=== PATIENT | male | born 1970 | race Caucasian/White ===

== ENCOUNTER 2017-08-12 10:45 | Observation (INO) | payer OTHER ==
[~2017-08-12] VITALS: Ht 180.3 cm; Wt 121.6 kg
--- NOTE | 2017-08-12 11:37 | ED CARDIAC/CP/PALPITATIONS ---
See Addendum History of Present Illness General Chief Complaint: Chest Pain Stated Complaint: BIBA CHEST PAIN Source: patient, EMS Exam Limitations: no limitations Vital Signs & Intake/Output Vital Signs & Intake/Output Vital Signs Date Time Temp Pulse Resp B/P B/P Pulse O2 O2 Flow FiO2 Mean Ox Delivery Rate 08/12 1644 98.2 73 18 131/64 94 Room Air 08/12 1301 97.4 65 18 138/78 96 Room Air 08/12 1131 Room Air 08/12 1101 97.1 68 18 132/67 95 Room Air Allergies Coded Allergies: No Known Allergies (08/12/17) Reconcile Medications Multivitamin (Daily Multiple Vitamin) 1 EACH TABLET 1 TAB PO DAILY VITAMIN SUPPORT (Reported) Triage Note: 47 YEAR OLD MALE TO ER VIA AMBULANCE WITH COMPLAINTS OF R SIDE CP THAT RADIATES INTO R AND L ARM, WITH R ARM WEAKNESS AND EXERTIONAL SOB. PAIN HAS BEEN CONSTANT BUT TODAY STARTED TO INCREASE. PT WAS BROUGHT IN BY AMBULANCE AND E[place]TE WAS MEDICATED WITH 4 BABY ASA AND 1 SL NITRO, WITH SOME RELIEF OF THE PAIN. PT NOW STATES THAT HE HAS PAIN IN L SIDE CHEST ALSO Triage Nurses Notes Reviewed? yes Onset: Abrupt Duration: day(s): (2), intermittent Timing: recent history Location: central Radiation: shoulders Activities at Onset: none HPI: 47-year-old male comes into the emergency room with complaints of chest tightness shortness of breath. Patient reports that for the past couple days she's been experiencing some tightness in the center of his chest. She reports that he feels associated tingling in his hands and arms bilaterally. He's had some increased shortness of breath. Denies any chest pain with exertion. Denies any fever chills coughing. Denies any vomiting or diaphoresis. Nonsmoker. Father had an MD in his late 40s. Denies any cocaine use. Denies any prior history of this prior to the last couple days. Nothing seems to make the symptoms better or worse. He came in by ambulance for further evaluation. Past History Travel History Traveled to [place] past 21 day No Medical History Any Pertinent Medical History? see below for history Neurological: NONE EENT: NONE Cardiovascular: NONE Respiratory: NONE Gastrointestinal: NONE Hepatic: NONE Renal: NONE Musculoskeletal: NONE Psychiatric: NONE Endocrine: NONE Blood Disorders: NONE Cancer(s): NONE ASSOCIATE CREATIVE DIRECTOR/Reproductive: NONE Surgical History Surgical History: non-contributory Psychosocial History What is your primary language Luxembourgish Tobacco Use: Never used ETOH Use: denies use Illicit Drug Use: denies illicit drug use Family History Hx Contributory? Yes (see hpi) Review of Systems Review of Systems Constitutional: Reports: no symptoms. EENTM: Reports: no symptoms. Respiratory: Reports: see HPI. Cardiovascular: Reports: see HPI. GI: Reports: no symptoms. Genitourinary: Reports: no symptoms. Musculoskeletal: Reports: no symptoms. Skin: Reports: no symptoms. Neurological/Psychological: Reports: no symptoms. Hematologic/Endocrine: Reports: no symptoms. Immunologic/Allergic: Reports: no symptoms. All Other Systems: Reviewed and Negative Physical Exam Physical Exam General Appearance: well developed/nourished, alert, awake Head: atraumatic, normal appearance Eyes: Bilateral: normal appearance, EOMI. Ears, Nose, Throat: normal ENT inspection, hearing grossly normal Neck: normal inspection Respiratory: normal breath sounds, no respiratory distress Cardiovascular: regular rate/rhythm Back: normal inspection Extremities: normal inspection Neurologic/Psych: awake, alert, oriented x 3 Skin: intact, normal color Core Measures ACS in differential dx? Yes CVA/TIA Diagnosis No Sepsis Present: No Sepsis Focused Exam Completed? No Progress Differential Diagnosis: AMI, aortic dissection, cholecystitis, costochondritis, musculoskeletal pain, myocarditis, pancreatitis, pericarditis, pneumonia, pneumothorax, pulmonary embolism, PUD/GERD, PVCs/PACs, sepsis, unstable angina Plan of Care: Orders Procedure Date/time Status Nothing by Mouth 08/13 B Active CBC WITHOUT DIFFERENTIAL 08/13 0600 Active BASIC ELECTROLYTES PLUS BUN&CR 08/13 0600 Active Regular Diet 08/12 D Complete TROPONIN LEVEL 08/12 1999 Active EKG 08/12 1999 Active Pathway - chart 08/12 1657 Active House Staff 08/12 1657 Active Patient Data 08/12 1657 Active Code Status 08/[address] in observation 08/12 1631 Active Misc Message 08/12 1631 Active ED Holding Orders 08/12 1631 Active Vital Signs 08/12 1631 Active Code Status 08/12 1631 Complete Patient Data 08/12 1526 Active TROPONIN LEVEL 08/12 1430 Complete EKG 08/12 1430 Active Add-on Test (ER Only) 08/12 1212 Active Intake & Output 08/12 1206 Active Telemetry/Boiler Welder 08/12 1136 Active THYROID STIMULATING HORMONE 08/12 1128 Active LIPID PANEL 08/12 1128 Active LIPASE 08/12 1128 Active GLYCOSYLATED HGB 08/12 1128 Active TROPONIN LEVEL 08/12 1120 Active D-DIMER 08/12 1120 Complete COMPREHENSIVE METABOLIC PANEL 08/12 1120 Active CBC WITHOUT DIFFERENTIAL 08/12 1120 Complete EKG 08/12 1047 Active Lab Add-on Test 08/12 UNK Active VTE Mechanical Prophylaxis 08/12 UNK Active Vital Signs 08/12 UNK Active Telemetry/Boiler Welder 08/12 UNK Active ECHOCARDIOGRAM 08/12 UNK Active Current Medications Sig/C[place] Start time Last Medication Dose Stop Time Status Admin Aspirin 81 MG DAILY 08/13 1000 UNVr (Aspirin) Heparin Sodium 5,000 UNIT Q8 08/12 2200 UNVr (Porcine) Atorvastatin Calcium 40 MG 1700 08/12 171 UNVr (Lipitor) Nitroglycerin 0.4 MG DAILY PRN 08/12 171 UNVr (Transderm Nitro 10MG (0.4 MG/Hr) Patch) Acetaminophen 650 MG Q6P PRN 08/12 170 UNVr (Tylenol) Multivitamins 1 TAB DAILY 08/12 1658 UNVr Therapeutic (Theragran-M Vitamins Tabs) Laboratory Tests 08/12/17 1415: Troponin I < 0.01 08/12/17 1128: Anion Gap 12, Estimated GFR > 60, BUN/Creatinine Ratio 16.0, Glucose 83, Hemoglobin A1c Pending, Calcium 9.9, Total Bilirubin 1.0, AST 22, ALT 41, Alkaline Phosphatase 57, Troponin I < 0.01, Total Protein 7.3, Albumin 4.3, Globulin 3.0, Albumin/Globulin Ratio 1.4, Triglycerides 229 H, Cholesterol 148, LDL Cholesterol, Calc 67, HDL Cholesterol 36 L, Cholesterol/HDL Ratio 4, Lipase 125, TSH Pending, Free T3 Pending, D-Dimer High Sensitivty < 200, CBC w Diff NO MAN DIFF REQ, RBC 5.36, MCV 84.4, MCH 29.4, MCHC 34.9, RDW 12.5, MPV 7.1 L, Gran % 69.5, Lymphocytes % 21.1, Monocytes % 7.1, Eosinophils % 1.1, Basophils % 1.2, Absolute Granulocytes 5.7, Absolute Lymphocytes 1.7, Absolute Monocytes 0.6 , Absolute Eosinophils 0.1, Absolute Basophils 0.1 Diagnostic Imaging: Viewed by Me: Radiology Read. Discussed w/RAD: Radiology Read. Radiology Impression: PATIENT: ROCAEL BEVERLY PRESENT AGE: 47 PATIENT ACCOUNT NO: [id number] : 69 LOCATION: [facility] ORDERING PHYSICIAN: Mj DOTY SERVICE DATE: 08/12/17 EXAM TYPE : RAD - XRY-CHEST XRAY, TWO VIEWS EXAMINATION: XR CHEST CLINICAL INFORMATION: Chest pain. COMPARISON: None TECHNIQUE: 2 views of the chest were obtained. FINDINGS: The lungs are hypoexpanded but clear. Heart size is borderline normal. Pulmonary vascularity is normal. No gross bony abnormality seen. IMPRESSION: Hypoexpanded lungs otherwise no acute process seen. DICTATED BY: Naveed Dickey MD DATE/TIME DICTATED:08/12/171158 MANAGER BENEFIT:AMBROSIO DATE/TIME TRANSCRIBED:08/12/171158 CONFIDENTIAL, DO NOT COPY WITHOUT APPROPRIATE AUTHORIZATION. <Electronically signed in Other Vendor System> SIGNED BY: Naveed Dickey MD 08/12/17 1203 Initial ED EKG: normal sinus rhythm, rate (70), nonspecific ST T wave chg Repeat EKG: unchanged Departure Departure Disposition: STILL A PATIENT Condition: Stable Clinical Impression Primary Impression: Chest pain with high risk for cardiac etiology Referrals: Elizabeth Cleaning MD Departure Forms: Customer Survey General Discharge Information Observation Note Spoke With: Paige Holt MD Physician Advisor Notified: KAYODE HAGER DO Place Patient In: Non-ED OBS Care Area Rationale for Observation: My rational for observation is as follows . Cardiac consultation. Serial troponins. Serial EKGs. Inpatient cardiac stress test if available. Echocardiogram. High risk. Patient still symptomatic with chest pain here in the emergency room. Improved after sublingual nitroglycerin. Critical Care Note Critical Care Note Critical Care Time: 30-74 min (35)
[2017-08-12 11:39] LABS: ABSOLUTE BASOPHIL COUNT 0.1 /CUMM (0.0-0.2); ABSOLUTE EOSINOPHIL COUNT 0.1 /CUMM (0.0-0.7); ABSOLUTE GRANULOCYTE CT 5.7 /CUMM (1.4-6.5); ABSOLUTE LYMPH COUNT 1.7 /CUMM (1.2-3.4); ABSOLUTE MONOCYTE COUNT 0.6 /CUMM (0.10-0.60); BASOPHIL % 1.2 % (0.0-2.0); EOSINOPHIL % 1.1 % (0-5); GRANULOCYTE % 69.5 % (42.2-75.2); HEMATOCRIT 45.3 % (42-52); MEAN CORPUSCULAR HGB 29.4 PG (27.0-31.0); MEAN CORPUSCULAR HGB CONC 34.9 G/DL (33.0-37.0); MEAN CORPUSCULAR VOLUME 84.4 FL (80.0-94.0); MEAN PLATELET VOLUME 7.1 FL (7.4-10.4); PLATELET COUNT 251 /CUMM (130-400); RBC DISTRIBUTION WIDTH 12.5 % (11.5-14.5); RED BLOOD CELL CT 5.36 /CUMM (4.70-6.10); WHITE BLOOD CELL COUNT 8.2 /CUMM (4.8-10.8)
[2017-08-12] MEDS ORDERED: DAILY MULTIPLE1 EACH PO (11:52)
--- NOTE | 2017-08-12 12:03 | RADIOLOGY REPORT ---
EXAMINATION: XR CHEST CLINICAL INFORMATION: Chest pain. COMPARISON: None TECHNIQUE: 2 views of the chest were obtained. FINDINGS: The lungs are hypoexpanded but clear. Heart size is borderline normal. Pulmonary vascularity is normal. No gross bony abnormality seen. IMPRESSION: Hypoexpanded lungs otherwise no acute process seen.
--- NOTE | 2017-08-12 16:58 | History & Physical ---
Diony CHUNG,[facility] 08/12/17 3828: General Information and HPI MD Statement: I have seen and personally examined ROCAEL BEVERLY and documented this H&P. The patient is a 47 year old M who presented with a patient stated chief complaint of [chest pain]. Source of Information: patient Exam Limitations: no limitations History of Present Illness: Mr. Beverly is a 47-year-old gentleman with no significant past medical history presents with chest pain x couple of days. According to the patient he was in his usual state of health until couple of days ago when he started having right sided chest pain, now bilateral, with numbness/tingling in bilateral upper extremities, shortness of breath especially with exertion and occasional palpitations. Pain is constant, cramping in nature , sometimes aggravated with exertion, without any radiation to left arm or jaw. Patient received 4 baby aspirins and sublingual nitroglycerin on the way to the hospital which decreased the intensity of the pain from 3/10 from 6/10. Denies any recent illness (except for an episode of laryngitis couple of weeks ago), fever/chills, cough, sputum production, orthopnea, PND, recreational drugs , herbal/[id number] medication use or recent trauma. Off note, patient had a stress test done in the past and also had a 30 day event monitor placed for occasional palpitation, which were negative for any events. Family history significant for VT in father at age of 40. Allergies/Medications Allergies: Coded Allergies: No Known Allergies (08/12/17) Home Med list Multivitamin (Daily Multiple Vitamin) 1 EACH TABLET 1 TAB PO DAILY VITAMIN SUPPORT (Reported) Past History Travel History Traveled to [place] past 21 day No Medical History Neurological: NONE EENT: NONE Cardiovascular: NONE Respiratory: NONE Gastrointestinal: NONE Hepatic: NONE Renal: NONE Musculoskeletal: NONE Psychiatric: NONE Endocrine: NONE Blood Disorders: NONE Cancer(s): NONE DRY ROLLER/Reproductive: NONE Surgical History Surgical History: non-contributory Past Family/Social History Family History Relations & Conditions if any FATHER FH: myocardial infarction Psychosocial History Smoking Status: Never Smoked (Occasional Cigar) ETOH Use: denies use Illicit Drug Use: denies illicit drug use Functional Ability ADLs Independent: dressing, eating, toileting, bathing. Ambulation: independent IADLs Independent: shopping, housework, finances, food prep, telephone, transportation , medication admin. Review of Systems Review of Systems Constitutional: Reports: no symptoms. EENTM: Reports: no symptoms. Cardiovascular: Reports: chest pain, palpitations. Denies: edema, orthopena. Respiratory: Reports: short of breath. GI: Reports: no symptoms. Genitourinary: Reports: no symptoms. Musculoskeletal: Reports: no symptoms. Skin: Reports: no symptoms. Neurological/Psychological: Reports: no symptoms. Hematologic/Endocrine: Reports: no symptoms. Immunologic/Allergic: Reports: no symptoms. All Other Systems: Reviewed and Negative Exam & Diagnostic Data Last 24 Hrs of Vital Signs/I&O Vital Signs Date Time Temp Pulse Resp B/P B/P Pulse O2 O2 Flow FiO2 Mean Ox Delivery Rate 08/12 1644 98.2 73 18 131/64 94 Room Air 08/12 1301 97.4 65 18 138/78 96 Room Air 08/12 1131 Room Air 08/12 1101 97.1 68 18 132/67 95 Room Air Intake & Output 08/12 1600 08/12 0800 08/12 0000 Intake Total Output Total Balance Patient 268 lb Weight Physical Exam General Appearance Alert, Oriented X3, Cooperative, No Acute Distress Skin No Rashes, No Breakdown Cardiovascular Regular Rate, Normal S1, Normal S2, No Murmurs Lungs Clear to Auscultation, Normal Air Movement Abdomen Normal Bowel Sounds, Soft, No Tenderness Extremities No Clubbing, No Cyanosis, Normal Pulses, trace pedal edema Last 24 Hrs of Labs/Bernabe: Laboratory Tests 08/12/17 1415: Troponin I < 0.01 08/12/17 1128: Anion Gap 12, Estimated GFR > 60, BUN/Creatinine Ratio 16.0, Glucose 83, Hemoglobin A1c Pending, Calcium 9.9, Total Bilirubin 1.0, AST 22, ALT 41, Alkaline Phosphatase 57, Troponin I < 0.01, Total Protein 7.3, Albumin 4.3, Globulin 3.0, Albumin/Globulin Ratio 1.4, Triglycerides 229 H, Cholesterol 148, LDL Cholesterol, Calc 67, HDL Cholesterol 36 L, Cholesterol/HDL Ratio 4, Lipase 125, TSH Pending, Free T3 Pending, D-Dimer High Sensitivty < 200, CBC w Diff NO MAN DIFF REQ, RBC 5.36, MCV 84.4, MCH 29.4, MCHC 34.9, RDW 12.5, MPV 7.1 L, Gran % 69.5, Lymphocytes % 21.1, Monocytes % 7.1, Eosinophils % 1.1, Basophils % 1.2, Absolute Granulocytes 5.7, Absolute Lymphocytes 1.7, Absolute Monocytes 0.6 , Absolute Eosinophils 0.1, Absolute Basophils 0.1 Diagnostic Data EKG Results Normal Sinus rhythm CXR Results IMPRESSION: Hypoexpanded lungs otherwise no acute process seen. Assessment/Plan Assessment: Mr. Beverly is a 47-year-old gentleman with no significant past medical history presents with chest pain x couple of days. Problem List; 1. Chest Pain r/o ACS 2. Strong cardiac family history - We will observe the patient on telemetry floor for 24-48 hours. - We'll start the patient on aspirin and statin. - No beta bharath given heart rate in 60s. - Nitroglycerin as needed for chest pain. - Troponin and EKG 3 to rule out ACS - Cardiology consult - Echocardiogram - We'll keep the patient nothing by mouth for possible stress test tomorrow. - We'll check lipid panel, A1c, TSH and free T4. DVT prophylaxis; Alps and subcutaneous heparin Patient is full code As Ranked By This Provider Problem List: 1. Chest pain with high risk for cardiac etiology Core Measures/Misc (03/02) Acute Coronary Syndrome ACS Diagnosis: No Congestive Heart Failure Congestive Heart Failure Diagnosis No Cerebrovascular Accident CVA/TIA Diagnosis: No VTE (View Protocol) VTE Risk Factors Age>40 No Mechanical VTE Prophylaxis d/t N/A MechProphylax Ordered No VTE Pharm Prophylaxis d/t NA PharmProphylax ordered Sepsis (View protocol) Sepsis Present: No Deniz Noel 08/12/17 1708: Resident Review Statement Resident Statement: examined this patient, discussed with electrical intern, agreed with electrical intern, discussed with family, reviewed EMR data (avail), discussed with nursing , discussed with case mgmt, reviewed images, amended to note Other Findings: This is a 47-year-old male with past medical history significant for Lyme disease presented for evaluation of right-sided chest pain for last 2 days. Patient reports right-sided chest pain, 6/10, sharp, radiating to right arm, associated with the right arm weakness, tingling sensation. He has been having chest pain for the last 2 days, on and off episodes. No aggravating or relieving factors. Patient reports shortness of breath with minimal exertion. He denied any chest pain in the past. Denied any nausea, vomiting, sweating, diaphoresis. He didn't take any medication for chest pain at home. Because of worsening chest pain this morning he decided to come to the emergency room for further evaluation. He received 4 baby aspirin, nitroglycerin tablet after which his chest pain subsided. Review of systems negative for nausea, vomiting, abdominal pain, change in bladder or bowel habits, fever, chills, productive cough, palpitations. He reports very minimal chest pain in the emergency room after getting nitroglycerin. He denies smoking, alcohol Abuse, illicit drug abuse. Family history significant for heart attack in father when he was at 40 year old. He has remote history of palpitations, nothing was found on Holter monitor. Stress test was done 10 years ago which was normal. --- Vitals afebrile, heart rate 68, respiratory rate 18, blood pressure 130/60, saturating at 95 on room air. Exam within normal limits CBCs, BEP normal limits, d-dimer less than 200 Troponin 2 sets were negative Chest x-ray was within normal limits EKG showed sinus rhythm, rate 70, no ST-T wave changes -------- 1. Chest pain rule out ACS Patient presented with sudden onset of chest pain, 6 out of 10, sharp, radiating to right arm, associated with a tingling sensation, short of breath. He received 4 baby aspirin, nitroglycerin tablet in the ER after which pain subsided. Given his strong family history, father has VT at 40, will place him under observation in telemetry floor to rule out acute coronary syndrome. * Place under observation in telemetry floor * Monitor vitals every shift * Continuous telemetry monitoring * Serial troponins and EKG * Cardiology consult * Echocardiogram * Stress test based on cardiology recommendation * Will check thyroid profile * Follow-up lipid panel * Follow-up HbA1c * Continue aspirin 81 daily * Continue Lipitor 40 daily * Nitroglycerin tablet when necessary as required for chest pain * We'll hold beta bharath as his heart rate is in 60s Patient is full code Regular diet, nothing by mouth after midnight for possible stress test based on cardiology recommendations Heparin subcutaneous for DVT prophylaxis Paige Holt MD 08/12/17 1717: Attending MD Review Statement Attending Statement Attending MD Statement: examined this patient, discuss w/resident/PA/DIVERSIONAL THERAPIST, agreed w/resident/PA/DIVERSIONAL THERAPIST, reviewed EMR data (avail) Attending Assessment/Plan: 47M no PMH presenting with 2 days of intermittent chest pain at rest associated with shortness of breath, not worse with exertion, improved with SL nitro, with a sensation of tingling in both arms R>L. No cardiac history in the past, had a negative Holter for palpitations 5 years ago and a negative stress test 10 years ago after developing cardiac Lyme. Father had an VT in his mid-40's. The patient does not smoke or use drugs. EKG is NSR without acute changes and first troponin is negative. 1. Chest pain at rest Plan - Observation in telemetry - Serial troponin and EKG - Cardiology consult - NPO after midnight in case of stress test - Check TSH, HbA1c, lipid panel - Start ASA and SL nitro - Can start Metoprolol and Lisinopril if HR and BP allow - DVT PPx
[2017-08-12 19:26] VITALS: BP 130/70
[2017-08-12 22:51] VITALS: BP 124/76
[2017-08-13 07:20] VITALS: BP 138/86
--- NOTE | 2017-08-13 07:34 | ECHOCARDIOGRAM REPORT ---
ROCAEL BEVERYL Age: 47 : 1970 Gender: M Exam Date: 08/12/2017 19:54 Exam Location: 2 [address] A Ht (in): 71 Wt (lb): 268 BSA: 2.51 BP: 131 / 64 Ordering Physician: Jr Noel MD Referring Physician: Jr Noel MD Technologist: Paula Flores BAR Room Number: [id number] Indications: CHEST PAIN Rhythm: Sinus Technical Quality: fair FINDINGS Left Ventricle Normal size left ventricle. Left ventricular wall thickness mildly increased. Normal left ventricular ejection fraction estimated at 60-65%. Right Ventricle Normal right ventricular size and function. Right Atrium Normal right atrial size. Left Atrium Mild left atrial dilatation. Mitral Valve Mitral valve normal in structure and function. Trace to mild mitral regurgitation. Aortic Valve Aortic valve is normal in structure and function. Tricuspid Valve Tricuspid valve is normal in structure and function. Trace to mild tricuspid regurgitation. Right ventricular systolic pressure estimated to be within the normal range at 25 mmHg. Pulmonic Valve Pulmonic valve not well visualized, grossly normal. Pericardium No pericardial effusion. Great Vessels Normal size aortic root. CONCLUSIONS Normal left and right ventricular systolic function. Mild Left ventricular hypertrophy.Mild left atrial enlargement. No significant valvular abnormalities noted. Geoff Sears M.D. (Electronically Signed) Final Date: 13 August 2017 07:33 MEASUREMENTS (Male / Female) Normal Values 2D ECHO LV Diastolic Diameter PLAX 4.5 cm 4.2 - 5.9 / 3.9 - 5.3 cm LV Systolic Diameter PLAX 2.6 cm 2.1 - 4.0 cm LV Fractional Shortening PLAX 42.2 % 25 - 46 % LV Ejection Fraction 2D Teich 73.4 % IVS Diastolic Thickness 1.3 cm LVPW Diastolic Thickness 1.4 cm LV Relative Wall Thickness 0.6 RV Internal Dim ED PLAX 3.5 cm 1.9 - 3.8 cm LVOT Diameter 2.2 cm Aortic Root Diameter 2.9 cm LA Systolic Diameter LX 4.1 cm 3.0 - 4.0 / 2.7 - 3.8 cm Ascending Aorta Diameter 3.1 cm DOPPLER AV Peak Velocity 149.0 cm/s AV Peak Gradient 8.9 mmHg AV Mean Velocity 102.0 cm/s AV Mean Gradient 5.0 mmHg AV Velocity Time Integral 31.5 cm LVOT Peak Velocity 114.0 cm/s LVOT Peak Gradient 5.2 mmHg LVOT Mean Velocity 74.9 cm/s LVOT Mean Gradient 3.0 mmHg LVOT Velocity Time Integral 23.0 cm LVOT Stroke Volume 87.4 cm AV Area Cont Eq vti 2.8 cm AV Area Cont Eq pk 2.9 cm MV Peak Velocity 78.3 cm/s MV Peak Gradient 2.5 mmHg MV Mean Velocity 51.7 cm/s MV Mean Gradient 1.0 mmHg Mitral E Point Velocity 72.1 cm/s Mitral A Point Velocity 64.2 cm/s Mitral E to A Ratio 1.1 MV PHT Velocity 83.0 cm/s MV Deceleration Edmonson 218.0 cm/s MV Pressure Half Time 114.2 ms MV Area PHT 1.9 cm MV Deceleration Time 209.0 ms TR Peak Velocity 219.0 cm/s TR Peak Gradient 19.2 mmHg Right Atrial Pressure 5.0 mmHg Pulmonary Artery Systolic Pressu 24.2 mmHg Right Ventricular Systolic Press 24.2 mmHg PV Peak Velocity 136.0 cm/s PV Peak Gradient 7.4 mmHg PV Mean Velocity 82.1 cm/s PV Mean Gradient 3.0 mmHg PV Velocity Time Integral 29.5 cm LV E' Lateral Velocity 14.8 cm/s Mitral E to LV E' Lateral Ratio 4.9 LV E' Septal Velocity 9.3 cm/s Mitral E to LV E' Septal Ratio 7.8
[2017-08-13 08:30] LABS: ABSOLUTE BASOPHIL COUNT 0 /CUMM (0.0-0.2); ABSOLUTE EOSINOPHIL COUNT 0.1 /CUMM (0.0-0.7); ABSOLUTE GRANULOCYTE CT 4.5 /CUMM (1.4-6.5); ABSOLUTE LYMPH COUNT 1.9 /CUMM (1.2-3.4); ABSOLUTE MONOCYTE COUNT 0.5 /CUMM (0.10-0.60); BASOPHIL % 0.6 % (0.0-2.0); HEMATOCRIT 46.4 % (42-52); MEAN CORPUSCULAR HGB 29.3 PG (27.0-31.0); MEAN CORPUSCULAR HGB CONC 34.5 G/DL (33.0-37.0); MEAN CORPUSCULAR VOLUME 84.9 FL (80.0-94.0); MEAN PLATELET VOLUME 7.3 FL (7.4-10.4); PLATELET COUNT 234 /CUMM (130-400); RBC DISTRIBUTION WIDTH 12.6 % (11.5-14.5); RED BLOOD CELL CT 5.47 /CUMM (4.70-6.10); WHITE BLOOD CELL COUNT 7.1 /CUMM (4.8-10.8)
--- NOTE | 2017-08-13 11:07 | PN-Observation ---
Observation Note Observation Note _ I have personally examined ROCAEL THORNTON. him disposition is uncertain at this time. Before a determination can be made, he requires continued observation for the following reasons [chest pain]. Assessment/Plan Medical Assessment: Mr. Thornton is a 47-year-old gentleman with no significant past medical history presents with chest pain x couple of days. Given the patient's presentation of the chest pain is very atypical and is likely musculoskeletal given family history of early age MO it's worthwhile ruling out any acute coronary events with a stress test. Patient also complaining of bilateral upper extremity numbness/tingling with occasional shaking/tremors that has been going on for a couple of days as well. Denies any neck pain or, trauma. Problem List; 1. Chest Pain r/o ACS 2. Strong cardiac family history 3. Hypertriglyceridemia - Continue to observe on telemetry floor. - Troponin and EKG 3 to rule out ACS - remained negative. Echocardiogram shows normal ejection fraction with no regional wall motion abnormalities. - Patient will go for a stress test today, and if remains negative, can be discharged home with outpatient follow-up with the cone picker. - Continue aspirin and statin. - No beta bharath given heart rate in 60s. - Nitroglycerin as needed for chest pain. - Patient consult regarding low-fat diet and exercise elevated triglyceride levels. Patient also concerned about his blood pressure 128/36 this morning. Again counseling was provided regarding losing weight, exercise and following a low-salt diet. DVT prophylaxis; Alps and subcutaneous heparin Patient is full code Problem List: 1. Chest pain with high risk for cardiac etiology Subjective Follow-up For: Chest Pain Tele-Events Since Last Visit: Sinus bardy Heart rate 55-64. Bradycardic to 40's once overnight. Subjective: Patient continues to have the chest pain, both right and left sides, and continues to have numbness/tingling in bilateral upper extremities. Also concerned about borderline high blood pressure. Review of Systems Constitutional: Reports: no symptoms. Cardiovascular: Reports: chest pain. Respiratory: Reports: no symptoms. Gastrointestinal: Reports: no symptoms. Genitourinary: Reports: no symptoms. Musculoskeletal: Reports: no symptoms. Skin: Reports: no symptoms. Neurological/Psychological: Reports: numbness, paresthesia. Objective Last 24 Hrs of Vital Signs/I&O Vital Signs Date Time Temp Pulse Resp B/P B/P Pulse O2 O2 Flow FiO2 Mean Ox Delivery Rate 08/13 0720 97.5 72 16 138/86 98 Room Air 08/12 2251 97.7 72 24 124/76 93 08/12 1926 98.0 67 17 130/70 96 08/12 1847 98.3 68 18 136/80 97 Room Air 08/12 1644 98.2 73 18 131/64 94 Room Air Intake & Output 08/13 1600 08/13 0800 08/13 0000 Intake Total 0 360 Output Total Balance 0 360 Intake, Oral 0 360 Patient 268 lb Weight Physical Exam General Appearance: Alert, Oriented X3, Cooperative, No Acute Distress Skin: No Rashes, No Breakdown Cardiovascular: Regular Rate, Normal S1, Normal S2 Lungs: Clear to Auscultation, Normal Air Movement Abdomen: Normal Bowel Sounds, Soft, No Tenderness Extremities: No Clubbing, No Cyanosis, No Edema, Normal Pulses Current Medications: Current Medications Sig/Cortez Start time Last Medication Dose Route Stop Time Status Admin Acetaminophen 650 MG Q6P PRN 08/12 1700 AC PO Aspirin 81 MG DAILY 08/13 1000 AC PO Atorvastatin Calcium 40 MG 1700 08/12 1715 AC 08/12 PO 1715 Heparin Sodium 5,000 UNIT Q8 08/12 2200 AC (Porcine) SC Influenza Virus 0.5 ML ONCE ONE 08/12 2044 DC Vaccine IM 08/12 204 Multivitamins 1 TAB DAILY 08/12 1658 AC 08/12 Therapeutic PO 1715 Nitroglycerin 0.4 MG Q 5 MINUTES X 3 DO.. 08/12 1730 AC SL Nitroglycerin 0.4 MG DAILY PRN 08/12 1715 AC TOP Nitroglycerin 0.4 MG ONCE ONE 08/12 1330 DC 08/12 SL 08/12 1331 1330 Last 24 Hrs of Labs/Mics: Laboratory Tests 08/13/17 0659: Anion Gap 11, Estimated GFR > 60, BUN/Creatinine Ratio 13.6, CBC w Diff NO MAN DIFF REQ, RBC 5.47, MCV 84.9, MCH 29.3, MCHC 34.5, RDW 12.6, MPV 7.3 L, Gran % 63.0, Lymphocytes % 27.4, Monocytes % 7.0, Eosinophils % 2.0, Basophils % 0.6, Absolute Granulocytes 4.5, Absolute Lymphocytes 1.9, Absolute Monocytes 0.5, Absolute Eosinophils 0.1, Absolute Basophils 0 08/12/17 2020: Troponin I < 0.01 08/12/17 1415: Troponin I < 0.01
--- NOTE | 2017-08-13 11:10 | PN- Att Addend ---
Attending Addendum Attending Brief Note Patient seen and examined. Resting comfortably not in any acute distress. No issues overnight. No events on security monitor. He continues to complain of right-sided chest pain. He reports that the pain occasionally radiates to the left. Denies any history of straining or heavy lifting. Denies any reproducibility of the pain. He does complain of retrosternal discomfort however this only occurred following admission after 1 of his telemetry monitoring leads was pulled off the chest wall. In addition patient complains of bilateral tingling sensation in his upper extremities. Reports that this is been going on for the past few days. Reports occasional tremors with his right upper extremity. Denies any neck pain. Denies any neck stiffness. On examination he is alert and oriented 3. He has no neck tenderness. He has normal range of motion of his neck and shoulders. Radial pulses are palpable bilaterally. Heart sounds are regular with no audible murmur. Lungs are clear to auscultation bilaterally. Abdomen soft and nontender. He has no peripheral edema. Problems: 1. Atypical chest pain 2. Bilateral upper extremity paresthesias 3. Elevated triglyceride level. Recommendations: Chest pain is atypical and appears musculoskeletal in nature. Recommend pain control with Tylenol.Patient scheduled for stress test today. If negative patient may be discharged home today. Recommend outpatient follow-up with the neurology service for a workable bilateral upper extremity paresthesias. Patient has been encouraged to maintain a low-fat diet and engage in aerobic exercises at least 3 times a week for 30 minutes each episode.
--- NOTE | 2017-08-13 12:04 | Cons- Cardiology ---
General Information and HPI Consulting Request Date of Consult: 08/13/17 Requested By: Rogelio Sanders MD Reason for Consult: Chest pain Source of Information: patient, old records Exam Limitations: no limitations History of Present Illness: The patient is a 47-year-old gentleman with no significant past medical history, who presents to our hospital with symptoms of chest discomfort. The patient states symptoms of chest discomfort initiated several days prior to his arrival, and were described as focal sensations in the left midaxillary area as well as right upper pectoral region. These did not have association with physical activity, and he describes being able to exercise/jog regularly without difficulty and without exacerbating symptoms. The overall intensity of the discomfort was [id number]. There is no associated diaphoresis nor dyspnea. No other clear exacerbating or alleviating factors were noted. The patient took and was administered nitroglycerin urgency room with alleviation of symptoms. Will, and EKG demonstrated no acute is. Subsequent troponin isoenzymes were negative. An echocardiogram performed demonstrated no focal wall motion abnormalities, normal valvular structure and function and a normal aortic root at the visualized portion Allergies/Medications Allergies: Coded Allergies: No Known Allergies (08/12/17) Home Med List: Multivitamin (Daily Multiple Vitamin) 1 EACH TABLET 1 TAB PO DAILY VITAMIN SUPPORT (Reported) Current Medications: Current Medications Sig/Cortez Start time Last Medication Dose Route Stop Time Status Admin Acetaminophen 650 MG Q6P PRN 08/12 1700 AC PO Aspirin 81 MG DAILY 08/13 1000 AC PO Atorvastatin Calcium 40 MG 1700 08/12 1715 AC 08/12 PO 1715 Heparin Sodium 5,000 UNIT Q8 08/12 2200 AC (Porcine) SC Influenza Virus 0.5 ML ONCE ONE 08/12 2045 DC Vaccine IM 08/12 204 Multivitamins 1 TAB DAILY 08/12 1658 AC 08/12 Therapeutic PO 1715 Nitroglycerin 0.4 MG Q 5 MINUTES X 3 DO.. 08/12 1730 AC SL Nitroglycerin 0.4 MG DAILY PRN 08/12 1715 AC TOP Nitroglycerin 0.4 MG ONCE ONE 08/12 1330 DC 08/12 SL 08/12 1331 1330 Past History Travel History Traveled to [place] past 21 day No Medical History Blood Transfusion Hx: No Neurological: NONE EENT: NONE Cardiovascular: NONE Respiratory: NONE Gastrointestinal: NONE Hepatic: NONE Renal: NONE Musculoskeletal: NONE Psychiatric: NONE Endocrine: NONE Blood Disorders: NONE Cancer(s): NONE COUNSELOR MANAGER/Reproductive: NONE Surgical History Surgical History: non-contributory Family History Relations & Conditions If Any: FATHER FH: myocardial infarction Psychosocial History Smoking Status: Never Smoked (Occasional Cigar) ETOH Use: denies use Illicit Drug Use: denies illicit drug use Functional Ability ADLs Independent: dressing, eating, toileting, bathing. Ambulation: independent IADLs Independent: shopping, housework, finances, food prep, telephone, transportation , medication admin. Exam & Diagnostic Data Vital Signs and I&O Vital Signs Date Time Temp Pulse Resp B/P B/P Pulse O2 O2 Flow FiO2 Mean Ox Delivery Rate 08/13 0720 97.5 72 16 138/86 98 Room Air 08/12 2251 97.7 72 24 124/76 93 08/12 1926 98.0 67 17 130/70 96 08/12 1847 98.3 68 18 136/80 97 Room Air 08/12 1644 98.2 73 18 131/64 94 Room Air 08/12 1301 97.4 65 18 138/78 96 Room Air Intake & Output 08/13 1600 08/13 0800 08/13 0000 08/12 1600 08/12 0800 08/12 0000 Intake Total 0 360 Output Total Balance 0 360 Intake, Oral 0 360 Patient 268 lb 268 lb Weight Physical Exam: General: Nontoxic, no apparent distress. HEENT: Sclera and conjunctiva within normal limits, without xanthelasmas. Neck: Carotids 2+ without bruits. Respiratory: Clear to auscultation, air movement is good, without accessory respiratory muscle use. Heart: Regular rate and rhythm, without murmurs, without JVD. Abdomen: Soft, nontender, no masses, normoactive bowel sounds. Extremities: Without clubbing, cyanosis, without edema. Neuro: Nonfocal exam, strength, 5 out of 5 Skin: Within normal limits without lesions. Psych: Mood and affect: Normal Labs/Bernabe Results: Laboratory Tests 08/13 08/12 08/12 0659 2020 1415 Chemistry Sodium (137 - 145 mmol/L) 143 Potassium (3.5 - 5.1 mmol/L) 4.3 Chloride (98 - 107 mmol/L) 102 Carbon Dioxide (22 - 30 mmol/L) 29 Anion Gap (5 - 16) 11 BUN (9 - 20 mg/dL) 15 Creatinine (0.7 - 1.2 mg/dL) 1.1 Estimated GFR (>60 ml/min) > 60 BUN/Creatinine Ratio (7 - 25 %) 13.6 Troponin I (<0.11 ng/ml) < 0.01 < 0.01 Hematology CBC w Diff NO MAN DIFF REQ WBC (4.8 - 10.8 /CUMM) 7.1 RBC (4.70 - 6.10 /CUMM) 5.47 Hgb (14.0 - 18.0 G/DL) 16.0 Hct (42 - 52 %) 46.4 MCV (80.0 - 94.0 FL) 84.9 MCH (27.0 - 31.0 PG) 29.3 MCHC (33.0 - 37.0 G/DL) 34.5 RDW (11.5 - 14.5 %) 12.6 Plt Count (130 - 400 /CUMM) 234 MPV (7.4 - 10.4 FL) 7.3 L Gran % (42.2 - 75.2 %) 63.0 Lymphocytes % (20.5 - 51.1 %) 27.4 Monocytes % (1.7 - 9.3 %) 7.0 Eosinophils % (0 - 5 %) 2.0 Basophils % (0.0 - 2.0 %) 0.6 Absolute Granulocytes (1.4 - 6.5 /CUMM) 4.5 Absolute Lymphocytes (1.2 - 3.4 /CUMM) 1.9 Absolute Monocytes (0.10 - 0.60 /CUMM) 0.5 Absolute Eosinophils (0.0 - 0.7 /CUMM) 0.1 Absolute Basophils (0.0 - 0.2 /CUMM) 0 08/12 1128 Chemistry Sodium (137 - 145 mmol/L) 140 Potassium (3.5 - 5.1 mmol/L) 4.1 Chloride (98 - 107 mmol/L) 103 Carbon Dioxide (22 - 30 mmol/L) 25 Anion Gap (5 - 16) 12 BUN (9 - 20 mg/dL) 16 Creatinine (0.7 - 1.2 mg/dL) 1.0 Estimated GFR (>60 ml/min) > 60 BUN/Creatinine Ratio (7 - 25 %) 16.0 Glucose (65 - 99 mg/dL) 83 Hemoglobin A1c (4.2 - 5.8 %) 5.1 Calcium (8.4 - 10.2 mg/dL) 9.9 Total Bilirubin (0.2 - 1.3 mg/dL) 1.0 AST (17 - 59 U/L) 22 ALT (21 - 72 U/L) 41 Alkaline Phosphatase (< 127 U/L) 57 Troponin I (<0.11 ng/ml) < 0.01 Total Protein (6.3 - 8.2 g/dL) 7.3 Albumin (3.5 - 5.0 g/dL) 4.3 Globulin (1.9 - 4.2 gm/dL) 3.0 Albumin/Globulin Ratio (1.1 - 2.2 %) 1.4 Triglycerides (<150 mg/dL) 229 H Cholesterol (< 200 MG/DL) 148 LDL Cholesterol, Calc (65 - 129 mg/dL) 67 HDL Cholesterol (40 - 60 mg/dL) 36 L Cholesterol/HDL Ratio (0.00 - 4.88 %) 4 Lipase (23 - 300 U/L) 125 TSH (0.270 - 4.200 uIU/mL) 0.931 Free T3 (2.71 - 6.16 pg/mL) 4.0 Coagulation D-Dimer High Sensitivty (0 - 243 ng/ml) < 200 Hematology CBC w Diff NO MAN DIFF REQ WBC (4.8 - 10.8 /CUMM) 8.2 RBC (4.70 - 6.10 /CUMM) 5.36 Hgb (14.0 - 18.0 G/DL) 15.8 Hct (42 - 52 %) 45.3 MCV (80.0 - 94.0 FL) 84.4 MCH (27.0 - 31.0 PG) 29.4 MCHC (33.0 - 37.0 G/DL) 34.9 RDW (11.5 - 14.5 %) 12.5 Plt Count (130 - 400 /CUMM) 251 MPV (7.4 - 10.4 FL) 7.1 L Gran % (42.2 - 75.2 %) 69.5 Lymphocytes % (20.5 - 51.1 %) 21.1 Monocytes % (1.7 - 9.3 %) 7.1 Eosinophils % (0 - 5 %) 1.1 Basophils % (0.0 - 2.0 %) 1.2 Absolute Granulocytes (1.4 - 6.5 /CUMM) 5.7 Absolute Lymphocytes (1.2 - 3.4 /CUMM) 1.7 Absolute Monocytes (0.10 - 0.60 /CUMM) 0.6 Absolute Eosinophils (0.0 - 0.7 /CUMM) 0.1 Absolute Basophils (0.0 - 0.2 /CUMM) 0.1 Assessment/Plan Assessment/Plan 47-year-old gentleman with no significant past medical history, who presents to our hospital with symptoms of chest discomfort. Chest pain: The patient's chest pain symptoms are atypical for an ischemic cardiac etiology and most likely represent musculoskeletal discomfort. He has ruled out for myocardial infarction via serial troponin isoenzymes and has no focal wall motion abnormalities on echocardiography. He will undergo exercise stress testing to exclude underlying ischemia. Testing is negative, he may be discharged home with further outpatient follow-up for primary prevention. Consult Acknowledgment - Thank you for your consult request.
[2017-08-13 14:35] VITALS: BP 122/78
[2017-08-13] MEDS ORDERED: ACETAMINOPHEN500 M4 PO (16:26)
--- NOTE | 2017-08-13 16:28 | Patient Discharge Instructions ---
Discharge Instructions General Discharge Information You were seen/treated for: Chest pain Numbness in bilateral upper extremities Watch for these problems: Please return to the ER in case of any chest pain radiating to your left arm or jaw, shortness of breath or palpitations. Special Instructions: Please follow-up with your PCP within a week after discharge. Please follow-up with the offset label rewinder within a week after discharge. These follow-up with a neurologist within a week after discharge. Diet Continue normal diet: Yes Recommended Diet: Heart Healthy, Low Fat Activity Full Activity/No Limits: Yes Acute Coronary Syndrome Inclusion Criteria At DC or during hospital stay patient has or had the following: ACS DIAGNOSIS No Discharge Core Measures Meds if any: Prescribed or Continued at Discharge Meds if any: NOT Prescribed or Continued at Discharge Congestive Heart Failure Inclusion Criteria At DC or during hospital stay patient has or had the following: CHF DIAGNOSIS No Discharge Core Measures Meds if any: Prescribed or Continued at Discharge Meds if any: NOT Prescribed or Continued at Discharge Cerebrovascular accident Inclusion Criteria At DC or during hospital stay patient has or had the following: CVA/TIA Diagnosis No Discharge Core Measures Meds if any: Prescribed or Continued at Discharge Meds if any: NOT Prescribed or Continued at Discharge Venous thromboembolism Inclusion Criteria VTE Diagnosis No VTE Type NONE VTE Confirmed by (Test) NONE Discharge Core Measures - Per Current guidelines, there needs to be overlap - treatment for the first 5 days of Warfarin therapy. - If discharged on Warfarin prior to 5 days of - overlap therapy, the patient will need to be - assessed for post discharge needs including - *Post discharge parental anticoagulation - *Warfarin and/or parental anticoagulation education - *Follow up date to check INR post discharge At least 5 days overlap therapy as Inpatient No Meds if any: Prescribed or Continued at Discharge Note: Overlap Therapy is Warfarin and Anticoagulant Meds if any: NOT Prescribed or Continued at Discharge
--- NOTE | 2017-08-13 17:35 | NUCLEAR MEDICINE REPORT ---
EXERCISE STRESS AND RESTING SPECT MYOCARDIAL PERFUSION IMAGING STUDY WITH GATED SPECT IMAGES: CLINICAL INDICATION: Angina. PROCEDURE: Regional myocardial perfusion was assessed using a 1 day protocol. Stress images were obtained on 08/13/2017 following the intravenous administration of 31 mCi Tc 99m Myoview. Stress was performed using the standard [place] protocol, with the patient reaching a peak heart rate of 95% maximal predicted heart rate. Rest images were obtained 08/13/2017 following the intravenous administration of 48.3 mCi Technetium 99m Myoview. Single photon emission tomographic (SPECT) images were obtained. SPECT images were acquired in a 64 x 64 matrix of 64 projections over 180 degrees. These were reconstructed into standard short axis, horizontal and vertical long axis cardiac projections. FINDINGS: The post stress images demonstrate the left ventricular chamber to be normal in size. There is homogeneous distribution of activity in the left ventricular myocardium with no regions of abnormally decreased activity noted. The resting images also demonstrate homogeneous distribution of activity in the left ventricular myocardium, and are not significantly changed from the post stress images. The stress images were obtained using a gated SPECT technique, which permits visualization of wall motion and calculation of the left ventricular ejection fraction. No left ventricular wall motion abnormalities are noted on the stress study. The calculated left ventricular ejection fraction is 52% on the stress study. No previous study is available for comparison. IMPRESSION: Normal exercise stress and resting myocardial perfusion study with normal left ventricular wall motion and ejection fraction.
== END 2017-08-13 17:24 ==
LOC: ERH 10:45 → ERHI 16:31 → 1NO 16:31 → ENRESERV 17:51 → ENTRNSPT 18:59 → EDTRNSPTSTS 19:04 → EDTRNSPT 19:04 → 1NO 19:14 → CMPTRNSPT 19:35 → 1NO 08-13 07:22
PROVIDERS: Hospitalist; Physician Assistant Medical
DX: R07.89 Other chest pain (principal); R20.2 Paresthesia of skin; E78.1 Pure hyperglyceridemia; Z79.82 Long term (current) use of aspirin
CPT/HCPCS: 6020; 36592; 71046; 78452; 82436; 84481; 93005; 93010; 93016; 93017; 93306; A9502; G0378; J1644; J3490